=== PATIENT | male | born 1965 | race Caucasian/White ===

== ENCOUNTER → 2023-12-19 09:09 | Outpatient (CLI) | payer OTHER, SELFPAY ==
--- NOTE | 2023-12-19 09:18 | DI.RAD.S_ITS ---
PROCEDURE: XR HIP W PEL IF DONE BILAT 2V INDICATIONS: Pain in unspecified hip TECHNIQUE: AP pelvis with lateral view(s) of the bilateral hip(s). COMPARISON: None. FINDINGS: Bones: No fractures or dislocations. Mild bilateral hip joint degeneration with joint space narrowing and osteophytosis. Pelvic ring appears intact. No suspicious bony lesions. Partially visualized lower lumbar spine hardware. Soft tissues: The visualized bowel gas pattern is normal. No suspicious soft tissue calcifications. IMPRESSION: No acute osseous abnormalities. Mild bilateral hip joint degeneration. Dictated by: Albert Lewis M.D. on 12/19/2023 at 14:10 Approved by: Albert Lewis M.D. on 12/19/2023 at 14:11
== END ==
PROVIDERS: Referring Provider Internal Medicine Cardiovascular Disease; Visit Provider Internal Medicine Cardiovascular Disease
DX: M25.559 Pain in unspecified hip (principal); M16.0 Bilateral primary osteoarthritis of hip
CPT/HCPCS: 73521